=== PATIENT | female | born 1990 | race Caucasian/White ===

== ENCOUNTER 2023-01-18 10:15 | Outpatient (CLI) | payer OTHER ==
[2023-01-19 04:09] LABS: HSV 1 IGG TYPE SPEC 9.72 index (0.00-0.90); HSV 2 IGG TYPE SPEC 5.57 index (0.00-0.90)
[2023-01-19 08:10] LABS: RPR Non Reactive (Non Reactive)
== END 2023-01-18 10:30 | disposition home or self-care (01) ==
LOC: LAB.N 10:15
PROVIDERS: ATTEND Family Medicine
DX: N76.6 Ulceration of vulva (principal)
CPT/HCPCS: 36415; 86592; 86695; 86696; 87255

== ENCOUNTER 2023-08-18 16:47 | Outpatient (CLI) | payer OTHER ==
--- NOTE | 2023-08-21 07:59 | MRI Report ---
PROCEDURE: Lumbar Spine WO INDICATIONS: LUMBAR RADICULOPATHY TECHNIQUE: Noncontrast sagittal T1 spin echo and T2 fast echo, sagittal STIR, axial T1 and T2 fast spin echo thr ough the lumbar spine. In cases with scoliosis, additional coronal T2 fast spin echo may be performe d. COMPARISON: None. FINDINGS: Image quality: Excellent. Alignment and Curvature: There is normal bony alignment. Bone Marrow: Marrow is of normal overall signal. No acute vertebral body compression fractures mild chronic anterior wedging of T11 and T12. Spinal Cord: Conus medullaris terminates at the L2-L3 level. Visualized cord demonstrates normal si gnal and size. Paraspinous Soft Tissues: No paravertebral masses. T12-L1: Normal in appearance. L1-L2: Normal in appearance. L2-L3: Normal in appearance. L3-L4: Mild facet hypertrophy. No canal stenosis or foraminal stenosis. L4-L5: Mild facet hypertrophy. No canal stenosis or foraminal stenosis. L5-S1: Facet hypertrophy. No canal stenosis or foraminal stenosis. IMPRESSION: Multilevel lower lumbar facet arthropathy. No canal stenosis or foraminal stenosis. Mild chronic anterior wedging of T11 and T12. Reviewed by: Abner Rees MD on 08/21/2023 7:58 AM PDT Approved by: Abner Rees MD on 08/21/2023 7:58 AM PDT Station ID: [id number]
== END 2023-08-18 16:48 | disposition home or self-care (01) ==
LOC: DI 16:47
PROVIDERS: ATTEND Family Medicine
DX: M25.552 Pain in left hip (principal); M47.26 Other spondylosis with radiculopathy, lumbar region

== ENCOUNTER 2024-01-03 15:15 | Outpatient (CLI) | payer OTHER ==
--- NOTE | 2024-01-03 16:26 | Sleep Patient Instructions ---
Sleep Center Visit Summary - Patient Visit Information Reason for Visit: Initial consult for evaluation of sleep disordered breathing and other sleep issues. - Patient Instructions Instructions Attached: Sleep Study Home Monitor Additional Instructions: You will be completing a sleep study, either an in-lab polysomnography (PSG) or home sleep study (HST). You will follow-up in the sleep care office after the sleep study is completed to hear the results and talk about therapy, if needed. You will be called by our office staff to schedule this appointment, but you may contact us with any questions. - Clinic Information Contact: [facility] [address] [place] [address] [email or web address] T: [phone]
--- NOTE | 2024-01-03 16:28 | SLEEP CARE CONSULTATION ---
Information from patient questionnaire entered by Donna Reyna. I have reviewed and concur with the information entered by Donna Reyna. This document represents the service I personally performed and the decisions made by me, Ekaterina Khanna ARNP. History of Present Illness Service Date and Time: 01/03/2024 1515 Reason for Visit: New patient Chief Complaint: reports: Snoring, Excessive daytime sleepiness, Fatigue, Frequent awakenings at night Date of Onset: About 3 years - worsening last year Usual bedtime: 9:30 - 10 PM Time it takes to fall asleep: 10 - 15 mins Snores at night: Yes Observed to quit breathing while asleep: No Sleeps alone due to snoring: No Number of times waking at night: 2 - 3 Reasons for waking at night: reports: Snoring, Gasping for air. denies: Choking Toss, Turn, or Twitch while sleeping: Yes Recalls having dreams: Yes (Occasionally) Usually gets out of bed at: 5:30 - 6 AM Feels refreshed in the morning: No Morning headache: Yes (Usually resolves once I've been up and moving for an hours or so) Sleepy or fatigued during the day: Yes Ever fallen asleep while driving: No Takes day naps: No Dreams during day naps: No Prior sleep studies: No Additional HPI information: I had the pleasure of seeing TENZIN HUNG today regarding the possibility of her having a sleep disorder. Her current complaints are excessive daytime sleepiness, fatigue, frequent night awakenings and snoring. She is waking up several times a night, sometimes with cold or hot sweats. She is fatigue during the day with some sleepiness. She does not wake up feeling refreshed. She does wake up with a headache about 1 time a week. She has a history of migraines and anxiety. She says her father has sleep apnea. Her PCP sent her here to evaluate for the daytime fatigue and that she has been gaining weight for no apparent reason over the last 6 months. 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 Patient is and lives in [place]. Have you smoked in the past 12 months: No Alcohol use: Yes Alcohol amount and frequency: 1 glass, 1 - 2 times a week Caffeine use: Yes Caffeine amount and frequency: 1 - 2 sodas, 1 - 2 times a week Family History Family history of sleep disordered breathing: Yes Family Hx Sleep Apnea: Father: Sleep apnea - Treated Allergies and Home Medications Known drug allergies: No Drug allergies reviewed: Yes Home medication list reviewed: Yes (as listed) Allergy and home medication list: Allergies No Known Drug Allergies Allergy (Verified 01/03/24 16:18) Home Medications Albuterol See Rx Instructions .ROUTE .COMPLEX 01/03/24 [History] Venlafaxine See Rx Instructions .ROUTE .COMPLEX 01/03/24 [History] valACYclovir 500 mg ORAL DAILY 01/03/24 [History] Review of Systems Weight gain over past 5 years: 12 lbs since July Cardiovascular: reports: leg or foot swelling. denies: high blood pressure Gastrointestinal: reports: heartburn, nausea Neurological: reports: headaches Psychiatric: reports: anxiety Ear/Nose/Throat: reports: wisdom teeth removed. denies: tonsillectomy Endocrine: reports: sluggishness (/tired) Musculoskeletal: reports: neck pain, back pain Immunologic: reports: allergies to food or environment Physical Exam Vital signs obtained and entered by: Ekaterina Kellogg NP Blood Pressure: 153/91 (anxious/nervous) Cuff size: wrist (right) Heart Rate: 92 O2 Saturation: 98 Height: 5 ft 8 in Weight: 280 lb 9.6 oz Body Mass Index: 42.6 BMI Classification: Morbidly Obese Neck circumference: 17 Mouth and throat: narrow oropharynx Soft palate: long Hard palate: normal Uvula: normal Uvula visualization: 25% Mallampati Class III Tongue: enlarged in size with teeth gordon on lateral edges Tonsils: 1+ Neck: normal w/o lymphadenopathy or thyromegaly Heart: regular rate and rhythm Lungs: clear bilaterally Impression and Plan 1. Suspected Obstructive Sleep Apnea-Hypopnea Syndrome, as suggested by a history of loud and irregular snoring, gasping or choking in sleep, morning headache, frequent awakening during the night and unrefreshed sleep. Narrow oropharynx and obesity are common predisposing factors for obstructive sleep apnea-hypopnea syndrome. I recommend proceeding to polysomnography to confirm the diagnosis and to assess severity. If the patient has significant sleep disordered breathing, a manual CPAP titration study will also be performed to find the optimal treatment pressure. I informed the patient of what the sleep studies involve and after some discussion, obtained agreement to proceed. The pathophysiology of obstructive sleep apnea-hypopnea syndrome was discussed with the patient and health risks of cardiovascular and cerebrovascular disease if not treated. Risks of drowsy driving discussed in detail and patient advised to avoid long distance driving and to tobacco sample puller at the first sign of drowsiness. Patient agreed to plan. * Schedule polysomnography * Avoid long distance driving or driving when feeling sleepy. * Avoid alcohol, sedative and muscle relaxant around bedtime. * Attempt to lose weight. * Review instructions provided by trained office staff on how to prepare for the sleep study. * Return for follow-up after sleep study completed. Counseling Topics: Weight loss health impact Plan: sleep study and followup Visit Type: In Office Time Spent with Patient (minutes): 30 Provider Statement: I spent 100% of the Face to Face Visit with the patient with greater than 50% spent counseling the patient and coordination of care.
[2024-01-03 16:31] VITALS: BP 153/91; O2SAT 98
== END 2024-01-03 15:16 | disposition home or self-care (01) ==
LOC: SC 15:15
PROVIDERS: ATTEND Nurse Practitioner Family
DX: R06.83 Snoring (principal); G47.8 Other sleep disorders; R51.9 Headache, unspecified; R61 Generalized hyperhidrosis; E66.01 Morbid (severe) obesity due to excess calories; Z68.41 Body mass index [BMI] 40.0-44.9, adult
CPT/HCPCS: 99203; 99212